=== PATIENT | female | born 1945 | race Caucasian/White ===

== ENCOUNTER → 2017-07-01 | Outpatient (CLI) | payer MEDICARE | LOC: KOH-I 16:06 | DX: M25.532 Pain in left wrist (principal) | CPT/HCPCS: 73090; 73110 ==

== ENCOUNTER → 2021-05-19 | Outpatient (CLI) | payer MEDICARE | LOC: KOH-I 14:28 | DX: M25.542 Pain in joints of left hand (principal); M25.541 Pain in joints of right hand; M19.042 Primary osteoarthritis, left hand; M19.041 Primary osteoarthritis, right hand | CPT/HCPCS: 73130 ==

== ENCOUNTER → 2021-09-20 | Outpatient (CLI) | payer MEDICARE | LOC: KOH-I 11:13 | DX: U07.1 COVID-19 (principal); J84.9 Interstitial pulmonary disease, unspecified | CPT/HCPCS: 71046 ==